=== PATIENT | male | born 1945 | race Caucasian/White ===

== ENCOUNTER → 2023-12-10 09:04 | Outpatient (REF) | payer MEDICARE, OTHER, SELFPAY | LOC: DHVS 09:04 | PROVIDERS: ATTENDING PHYSICIAN Surgery Vascular Surgery | DX: I73.9 Peripheral vascular disease, unspecified (principal) | CPT/HCPCS: 93922; 93925; 93978 ==

== ENCOUNTER → 2024-03-15 09:35 | Outpatient (REF) | payer MEDICARE, OTHER, SELFPAY ==
[2024-03-15 10:10] LABS: % Basophils 0.8 % (0-2); % Eosinophils 3.1 % (0-6); % Immature Granulocytes 0.3 % (0-0.5); % Lymphocytes 20.8 % (20.5-51.1); % Monocytes 10.3 % (1.7-9.3); % Neutrophils 64.7 % (42.2-75.2); Absolute Basophils 0.1 10^3/uL (0-0.2); Absolute Eosinophils 0.2 10^3/uL (0-0.7); Absolute Lymphocytes 1.3 10^3/uL (1.2-3.4); Absolute Monocytes 0.7 10^3/uL (0.1-0.6); Absolute Neutrophils 4.1 10^3/uL (1.4-6.5); Hematocrit 41.4 % (39.0-52.0); Hemoglobin 13.2 g/dL (13.0-18.0); Mean Corp Hgb Conc. 31.9 g/dL (33.0-37.0); Mean Corpuscular Hgb 27.9 pg (27.0-31.0); Mean Corpuscular Volume 87.5 fL (80.0-94.0); Mean Platelet Volume 10.7 fL (7.4-10.4); Nucleated Red Blood Cells % 0 % (-); Platelet Count 172 10^3/uL (130-400); Red Blood Cell Count 4.73 10^6/uL (4.70-6.10); Red Cell Dist. Width 16.3 % (11.5-14.5); White Blood Cell Count 6.4 10^3/uL (4.8-10.8)
[2024-03-15 11:18] LABS: Glycohemoglobin (HgbA1c) 6.3 % (4.0-5.6)
[2024-03-15 11:20] LABS: ALT (SGPT) 13 U/L (0-50); AST (SGOT) 23 U/L (17-59); Albumin 4.7 g/dl (3.5-5.0); Alkaline Phosphatase 105 U/L (38-126); Blood Urea Nitrogen 24 mg/dl (9-20); Calcium 10.6 mg/dl (8.4-10.2); Carbon Dioxide 25 mmol/L (22-30); Chloride 106 mmol/L (98-107); Glucose 106 mg/dl (70-99); HDL Cholesterol 53 mg/dl; LDL Cholesterol, Calculated 70 mg/dl; Potassium 4.3 mmol/L (3.5-5.1); Sodium 144 mmol/L (135-145); Total Bilirubin 0.7 mg/dl (0.2-1.3); Total Cholesterol 151 mg/dl (50-199); Total Protein 7.6 g/dl (6.3-8.2); Triglyceride 141 mg/dl (10-149); Very Low Density Lipoprotein 28 mg/dl (0-30); eGFR 38.05
[2024-03-15 11:50] LABS: TSH 1.61 uIU/ml (0.47-4.68)
== END ==
LOC: REG 09:35
PROVIDERS: ATTENDING PHYSICIAN Family Medicine
DX: I10 Essential (primary) hypertension (principal); E78.2 Mixed hyperlipidemia; E11.51 Type 2 diabetes mellitus with diabetic peripheral angiopathy without gangrene
CPT/HCPCS: 36415; 80053; 80061; 83036; 84443; 85025

== ENCOUNTER → 2024-07-01 13:08 | Outpatient (REF) | payer MEDICARE, OTHER, SELFPAY ==
[2024-07-01 14:53] LABS: % Basophils 0.7 % (0-2); % Eosinophils 2.7 % (0-6); % Immature Granulocytes 0.4 % (0-0.5); % Lymphocytes 21.4 % (20.5-51.1); % Monocytes 9.2 % (1.7-9.3); % Neutrophils 65.6 % (42.2-75.2); Absolute Basophils 0.1 10^3/uL (0-0.2); Absolute Eosinophils 0.2 10^3/uL (0-0.7); Absolute Lymphocytes 1.5 10^3/uL (1.2-3.4); Absolute Monocytes 0.7 10^3/uL (0.1-0.6); Absolute Neutrophils 4.6 10^3/uL (1.4-6.5); Hematocrit 40.2 % (39.0-52.0); Hemoglobin 12.6 g/dL (13.0-18.0); Mean Corp Hgb Conc. 31.3 g/dL (33.0-37.0); Mean Corpuscular Hgb 28.1 pg (27.0-31.0); Mean Corpuscular Volume 89.7 fL (80.0-94.0); Nucleated Red Blood Cells % 0 % (-); Platelet Count 178 10^3/uL (130-400); Red Blood Cell Count 4.48 10^6/uL (4.70-6.10); Red Cell Dist. Width 14.8 % (11.5-14.5); White Blood Cell Count 7.1 10^3/uL (4.8-10.8)
[2024-07-01 15:25] LABS: Albumin 4.5 g/dl (3.5-5.0); Blood Urea Nitrogen 23 mg/dl (9-20); Calcium 10.2 mg/dl (8.4-10.2); Carbon Dioxide 28 mmol/L (22-30); Chloride 102 mmol/L (98-107); Glucose 75 mg/dl (70-99); Phosphorus 3.1 mg/dl (2.5-4.5); Potassium 4.7 mmol/L (3.5-5.1); Sodium 139 mmol/L (135-145); Uric Acid 3.4 mg/dl (3.5-8.5); eGFR 47.06
[2024-07-02 09:17] LABS: Intact PTH 76.4 pg/ml (13.6-85.8)
== END ==
LOC: RAD 13:08
PROVIDERS: ATTENDING PHYSICIAN Specialist; FAMILY PHYSICIAN Family Medicine
DX: R79.89 Other specified abnormal findings of blood chemistry (principal)
CPT/HCPCS: 36415; 76770; 80069; 83970; 84155; 84165; 84550; 85025

== ENCOUNTER → 2024-07-04 13:40 | Outpatient (REF) | payer MEDICARE, OTHER, SELFPAY ==
[2024-07-04 15:20] LABS: Microalbumin, Random Urine 2.3 mg/dl (0.6-1.7); Microalbumin/creatinine Ratio 28.8 mg/g
== END ==
LOC: REG 13:40
PROVIDERS: ATTENDING PHYSICIAN Specialist
DX: R79.89 Other specified abnormal findings of blood chemistry (principal)
CPT/HCPCS: 82043; 82570; 83521; 84156; 86335

== ENCOUNTER → 2024-07-12 15:13 | Outpatient (REF) | payer MEDICARE, OTHER, SELFPAY | LOC: RAD 15:13 | PROVIDERS: ATTENDING PHYSICIAN Surgery Vascular Surgery; FAMILY PHYSICIAN Family Medicine | DX: I73.9 Peripheral vascular disease, unspecified (principal) | CPT/HCPCS: 93922; 93925 ==

== ENCOUNTER → 2024-11-09 14:28 | Outpatient (REF) | payer MEDICARE, OTHER, SELFPAY ==
[2024-11-09 15:57] LABS: ALT (SGPT) 11 U/L (0-50); AST (SGOT) 19 U/L (17-59); Albumin 4.5 g/dl (3.5-5.0); Alkaline Phosphatase 94 U/L (38-126); Blood Urea Nitrogen 19 mg/dl (9-20); Calcium 9.7 mg/dl (8.4-10.2); Carbon Dioxide 28 mmol/L (22-30); Chloride 103 mmol/L (98-107); Glucose 92 mg/dl (70-99); Potassium 4.4 mmol/L (3.5-5.1); Sodium 140 mmol/L (135-145); Total Bilirubin 0.8 mg/dl (0.2-1.3); eGFR 51.13
[2024-11-09 16:36] LABS: Microalbumin, Random Urine 2.8 mg/dl (0.6-1.7); Microalbumin/creatinine Ratio 36.6 mg/g
== END ==
LOC: REG 14:28
PROVIDERS: ATTENDING PHYSICIAN Specialist; FAMILY PHYSICIAN Family Medicine
DX: R79.89 Other specified abnormal findings of blood chemistry (principal)
CPT/HCPCS: 36415; 80053; 82043; 82570

== ENCOUNTER 2024-12-27 05:01 | Emergency (ER) | payer MEDICARE, OTHER, SELFPAY ==
[2024-12-27 05:04] VITALS: BP 126/71
[2024-12-27 05:10] VITALS: BMI 28.1
[2024-12-27 05:27] LABS: % Basophils 0.6 % (0-2); % Eosinophils 3.3 % (0-6); % Immature Granulocytes 0.5 % (0-0.5); % Lymphocytes 20.8 % (20.5-51.1); % Monocytes 10.1 % (1.7-9.3); % Neutrophils 64.7 % (42.2-75.2); Absolute Eosinophils 0.2 10^3/uL (0-0.7); Absolute Lymphocytes 1.4 10^3/uL (1.2-3.4); Absolute Monocytes 0.7 10^3/uL (0.1-0.6); Absolute Neutrophils 4.3 10^3/uL (1.4-6.5); Hematocrit 43.7 % (39.0-52.0); Hemoglobin 13.4 g/dL (13.0-18.0); Mean Corp Hgb Conc. 30.7 g/dL (33.0-37.0); Mean Corpuscular Hgb 25.9 pg (27.0-31.0); Mean Corpuscular Volume 84.4 fL (80.0-94.0); Mean Platelet Volume 10.7 fL (7.4-10.4); Nucleated Red Blood Cells % 0 % (-); Platelet Count 210 10^3/uL (130-400); Red Blood Cell Count 5.18 10^6/uL (4.70-6.10); Red Cell Dist. Width 17.4 % (11.5-14.5); White Blood Cell Count 6.6 10^3/uL (4.8-10.8)
[2024-12-27 05:55] LABS: ALT (SGPT) 12 U/L (0-50); AST (SGOT) 21 U/L (17-59); Albumin 4.3 g/dl (3.5-5.0); Alkaline Phosphatase 116 U/L (38-126); Blood Urea Nitrogen 23 mg/dl (9-20); Calcium 10.2 mg/dl (8.4-10.2); Carbon Dioxide 31 mmol/L (22-30); Chloride 104 mmol/L (98-107); Estimated Creatinine Clearance 29 ml/min; Glucose 141 mg/dl (70-99); Potassium 3.3 mmol/L (3.5-5.1); Sodium 146 mmol/L (135-145); Total Bilirubin 0.7 mg/dl (0.2-1.3); Total Protein 7.3 g/dl (6.3-8.2); eGFR 33.32
[2024-12-27 06:00] VITALS: BP 136/92
--- NOTE | 2024-12-27 06:05 | ED.GENMED ---
Addendum entered and electronically signed by Pete Pennington DO 12/27/24 08:33:
Addendum, patient became verbally abusive to staff, I tried to de-escalate the situation unsuccessfully and he was adamant that he wanted to go home given verbal AMA instructions
Original Note:
History of Present Illness
<Luciana Weinstein MD, Resident - Last Filed: 12/27/24 07:46>
General
Chief Complaint: Heart Rate Problem
Time Seen by Provider: 12/27/24 05:56
History of Present Illness
History of Present Illness:
This is a 77-year-old male with PMH of Paroxysmal Afib, HTN, HLD, T2DM and PAD who presents to the ED after a fall episode at home. Patient reports falling off a chair while trying to go to the restroom at night. He denies hitting his head on the
floor. He denied any dizziness episode, but admits weakness in bilateral extremities while trying to stand up. He denied loss of consciousness. On baseline, patient uses a walker and a cane to ambulate. Per his , he has had multiple fall
episodes in the past 2 months, most recent episode was 3 weeks ago prompting him to get evaluated at [facility]. At that time, he hit his head on the floor, and was noted to be in Afib. Per , workup done at that time were
negative, and he spontaneously converted to NSR prior to discharge.
Today, patient denies any pain and numbness in bilateral lower extremities. He reports weakness which is chronic for him due to his history of PAD. His contacted EMS after the fall episode and he was noted to be in rapid Afib. He denies chest
pain, shortness of breath, palpitation, dizziness. He has had no fevers or viral episodes. He currently takes Eliquis and has not missed any dosage.
Past History
<Luciana Weinstein MD, Resident - Last Filed: 12/27/24 07:46>
Past History
ED Past Medical History: Arrthythmia (Atrial flutter, paroxysmal atrial fibrillation), HTN, Hypercholesterolemia, IDDM, [place] and Other (CAD, ischemic cardiomyopathy, paroxysmal atrial fibrillation, NSVT, hypertension, hyperlipidemia, T2DM, PAD)
ED Past Surgical History: Cardiac (stentx1)
Social History
Tobacco: Former smoker
Alcohol: None
Drug: None
Personal:
Living: with family
Employment: Retired
Review of Systems
<Luciana Weinstein MD, Resident - Last Filed: 12/27/24 07:46>
Review of Systems
All Other Systems: ROS reviewed and negative except as documented in HPI and ROS
Constitutional: Denies fever, fatigue or chills
Respiratory: Reports no symptoms
Cardiac: Reports no symptoms
ABD/GI: Reports no symptoms
: Reports no symptoms
Musculoskeletal: Reports no symptoms
Phy Exam
<Luciana Weinstein MD, Resident - Last Filed: 12/27/24 07:46>
General Physical Exam
General Presentation: well appearing and no apparent distress
General Skin: warm and dry
General Habitus: elderly
General Mental: alert
Cardiovascular Exam
Cardiovascular Exam: irregularly irregular and tachycardia
Pulmonary Exam
Pulmonary Exam: lungs clear, no respiratory distress and no crackles
Gastrointestinal Exam
Gastrointestinal Exam: normal bowel sounds, non tender, soft and non distended
Neurological Exam
Neurological Exam: alert and oriented x3
Musculoskeletal Exam
Musculoskeletal Exam: full ROM and no edema
Psychiatric Exam
Psychiatric Exam: normal mood/affect
Course
<Luciana Weinstein MD, Resident - Last Filed: 12/27/24 07:46>
Orders/Labs/Results
Orders:
Orders
12/27/24 05:03
EKG [Electrocardiogram (*1)] Urgent
Reason for Study: Atrial Fibrillation
EKG- Treatment ONCE
12/27/24 05:12
CMP [Comprehensive Metabolic Panel] Urgent
Complete Blood Count/With Diff Urgent
Magnesium Urgent
Comment: ADD ON
NT-proBNP Urgent
Comment: ADD ON-SERUM
12/27/24 05:57
Add On- LAB Urgent
Tests Added?: magnesium, pBNP
CR Chest - 2 Views Urgent
Comment:
Reason For Exam: sob arf af
12/27/24 06:31
CT Cervical Spine W/o Iv Contr Urgent
Comment:
Reason For Exam: fall
CT Head W/o Iv Contrast Urgent
Comment:
Reason For Exam: fall
Diltiazem HCl [Cardizem] 10 mg IV NOW STA
12/27/24 06:45
Diltiazem 125 mg/125 ml Nss [Cardizem] 125 mg in 125 ml IV PER PROTOCOL
Initial dose in mg/hr, then titrate:: 5
Titrate to keep:: Heart rate 80-100 bpm
Titrate by mg/hr:: 5 mg/hr
Frequency of titrations (minutes):: 15
Maximum dose in mg/hr:: 15
12/27/24 07:04
Potassium Chloride [KCl] 20 meq 0.9% Sodium Chloride 150 ml [Nss] 150 ml IV NOW
12/27/24 07:08
Urinalysis Stat
Abnormal Lab Results
12/27/24
05:12
MCH 25.9 L pg
(27.0-31.0)
MCHC 30.7 L g/dL
(33.0-37.0)
RDW 17.4 H %
(11.5-14.5)
MPV 10.7 H fL
(7.4-10.4)
Absolute Monos (auto) 0.7 H 10^3/uL
(0.1-0.6)
Monocytes % 10.1 H %
(1.7-9.3)
Sodium 146 H mmol/L
(135-145)
Potassium 3.3 L mmol/L
(3.5-5.1)
Carbon Dioxide 31 H mmol/L
(22-30)
BUN 23 H mg/dl
(9-20)
Creatinine 2.0 H mg/dL
(0.7-1.3)
Glucose 141 H mg/dl
(70-99)
Magnesium 2.4 H mg/dl
(1.6-2.3)
12/27/24 05:12
12/27/24 05:12
Vital Signs
Initial and Last Documented VS:
Initial Vital Signs
Temp Pulse Resp BP Pulse Ox
97.7 F 123 20 126/71 98
12/27/24 05:04 12/27/24 05:04 12/27/24 05:04 12/27/24 05:04 12/27/24 05:04
Last Documented Vital Signs
Temp Pulse Resp BP Pulse Ox
97.7 F 138 16 136/92 94
12/27/24 05:04 12/27/24 06:41 12/27/24 06:15 12/27/24 06:41 12/27/24 06:15
<Pete Pennington, DO - Last Filed: 12/27/24 06:47>
Orders/Labs/Results
Orders:
Orders
12/27/24 05:03
EKG [Electrocardiogram (*1)] Urgent
Reason for Study: Atrial Fibrillation
EKG- Treatment ONCE
12/27/24 05:12
CMP [Comprehensive Metabolic Panel] Urgent
Complete Blood Count/With Diff Urgent
Magnesium Urgent
Comment: ADD ON
NT-proBNP Urgent
Comment: ADD ON-SERUM
12/27/24 05:57
Add On- LAB Urgent
Tests Added?: magnesium, pBNP
CR Chest - 2 Views Urgent
Comment:
Reason For Exam: sob arf af
12/27/24 06:31
CT Cervical Spine W/o Iv Contr Urgent
Comment:
Reason For Exam: fall
CT Head W/o Iv Contrast Urgent
Comment:
Reason For Exam: fall
Diltiazem HCl [Cardizem] 10 mg IV NOW STA
12/27/24 06:45
Diltiazem 125 mg/125 ml Nss [Cardizem] 125 mg in 125 ml IV PER PROTOCOL
Initial dose in mg/hr, then titrate:: 5
Titrate to keep:: Heart rate 80-100 bpm
Titrate by mg/hr:: 5 mg/hr
Frequency of titrations (minutes):: 15
Maximum dose in mg/hr:: 15
12/27/24 07:04
Potassium Chloride [KCl] 20 meq 0.9% Sodium Chloride 150 ml [Nss] 150 ml IV NOW
12/27/24 07:08
Urinalysis Stat
Abnormal Lab Results
12/27/24
05:12
MCH 25.9 L pg
(27.0-31.0)
MCHC 30.7 L g/dL
(33.0-37.0)
RDW 17.4 H %
(11.5-14.5)
MPV 10.7 H fL
(7.4-10.4)
Absolute Monos (auto) 0.7 H 10^3/uL
(0.1-0.6)
Monocytes % 10.1 H %
(1.7-9.3)
Sodium 146 H mmol/L
(135-145)
Potassium 3.3 L mmol/L
(3.5-5.1)
Carbon Dioxide 31 H mmol/L
(22-30)
BUN 23 H mg/dl
(9-20)
Creatinine 2.0 H mg/dL
(0.7-1.3)
Glucose 141 H mg/dl
(70-99)
Magnesium 2.4 H mg/dl
(1.6-2.3)
12/27/24 05:12
12/27/24 05:12
Vital Signs
Initial and Last Documented VS:
Initial Vital Signs
Temp Pulse Resp BP Pulse Ox
97.7 F 123 20 126/71 98
12/27/24 05:04 12/27/24 05:04 12/27/24 05:04 12/27/24 05:04 12/27/24 05:04
Last Documented Vital Signs
Temp Pulse Resp BP Pulse Ox
97.7 F 138 16 136/92 94
12/27/24 05:04 12/27/24 06:41 12/27/24 06:15 12/27/24 06:41 12/27/24 06:15
<Luciana Weinstein MD, Resident - Last Filed: 12/27/24 07:46>
MDM/Problems Addressed
MDM/Problems Addressed:
This is a 79-year-old with past medical history of paroxysmal atrial fibrillation, hypertension, hyperlipidemia who presents to the ED after recent fall. Per he has had multiple fall episodes over the past 2 months and recently evaluated at
[facility]. He was noted to be in A-fib by EMS. At bedside, he denies palpitations, shortness of breath, chest pain. He denies dizziness, loss of consciousness. Patient is in no distress, irregular rate, irregular rhythm,
extremities no peripheral edema. Will start on Cardizem drip for rate control.
Update: Patient left the ED against medical advice after being informed of the risks, including potential complications related to anticoagulation and recent falls. Patient refused to sign the AMA form and stated they understood the risks. Patient
was verbally disrespectful toward the nursing staff during the discharge process.
<Luciana Weinstein MD, Resident - Last Filed: 12/27/24 07:46>
*Critical Care Note
Total Time (30-74mins, 75-104mins- exclusive of procedures): Not Applicable
ED Attending Note
<Luciana Weinstein MD, Resident - Last Filed: 12/27/24 07:46>
-
Portions of this chart may have been created with voice recognition software.� Occasional wrong word or��sound alike� substitutions may have occurred due to the inherent limitations of voice recognition software.
<Pete Pennington, DO - Last Filed: 12/27/24 06:47>
ED Attending Note
Patient seen and examined by attending physician: Yes
I performed a history and physical exam of patient and discussed management with resident, I reviewed resident's note and agree with documented findings and plan of care.: Yes
ED Attending Note:
Seen with resident, examined independently. Assessment and plan 79-year-old male PAF on Eliquis, fall few weeks ago apparently seen at [facility] had a CAT scan converted to sinus on his own fell again this morning, here he looks somewhat disheveled
but cooperative no overt signs of trauma he is in rapid A-fib appears deconditioned plan to be labs for rate control CT head cervical spine chest x-ray UA, low threshold to admit age recurrent falls rapid A-fib
Discharge Plan
Departure
Prescriptions:
No Action
trazodone 50 mg Tablet
50 mg PO QPM
rosuvastatin [Crestor] 20 mg Tablet
20 mg PO QPM
pregabalin [Lyrica] 50 mg Capsule
50 mg PO BID
Eliquis 5 mg Tablet
5 mg PO BID
empagliflozin 25 mg Tablet
12.5 mg PO HS
paroxetine HCl 40 mg Tablet
40 mg PO QPM
lisinopril 20 mg Tablet
20 mg PO DAILY
clopidogrel 75 mg Tablet
75 mg PO DAILY Qty: 90 0RF
carvedilol 6.25 mg Tablet
6.25 mg PO BID Qty: 120 0RF
Referrals:
Shaggy Dewitt MD [Family Provider] -
Interventions
Interventions:
*Risk Screen - Suicide Last Done: 12/27/24 05:04
*General Assessment Last Done: 12/27/24 05:04
*Neglect/Abuse Screening Last Done: 12/27/24 05:04
*ED- Fall Risk Assessment Last Done: 12/27/24 05:04
*ED COVID-19 Vaccine History Last Done: 12/27/24 05:04
ED- Cardiac Assessment Last Done: 12/27/24 05:19
ED- Pulmonary Assessment Last Done: 12/27/24 05:21
Discharge Date and Time
Print Language: SINGAPORE[place]
[2024-12-27 06:10] LABS: Magnesium 2.4 mg/dl (1.6-2.3)
[2024-12-27] MEDS: CARDIZEM 10 MG IV (06:41)
[2024-12-27 06:47] VITALS: BP 110/83
[2024-12-27] MEDS: CARDIZEM 125 IV (06:47)
[2024-12-27 07:03] VITALS: BP 135/74
[2024-12-27 07:20] VITALS: BP 162/101
--- NOTE | 2024-12-27 07:40 | EDRN ---
I was texting the attending to see if pt could eat and to update him that I could not obtain a UA at this time. The pt was calling out from his room, telling me to take this stuff off, he's going home. I explained that I was trying to get him some
breakfast and he replied; ' you can't bribe me '. I tried explaining that I was talking to the doctor at this moment but he was adamant about leaving, complaining about waiting too long : ' half an hour '. The resident came in and tried to talk to
the pt. At this point the pt had removed his monitor, his BP Cuff. and was at the foot of the bed. HE starting to complain about eveything about me; from being rude, to my hands were to cold to touch anybody', etc. The resident was concerned about
his falling, I found a walker for him to use ; ' it's too small'. and he did walk up and down the cueto. I removed his INT and placed a dressing. I tried to help him take his stickers off; ' don't touch me, you don't show me respect I deserve, I'll
report you to the state board, I don't want to see you '. 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 I was offering a wheelchair, he yelled me not to talk to anyone while I was in the cueto by his door. The chemical radiation technician offered a w/ch; ' what
do you think , I'm an idiot?' he asked him. I did call his who is coming to pick him up . The resident had me leave as the pt continued to verbally harass me.
[2024-12-27 07:49] LABS: NT-proBNP 279 pg/ml
== END 2024-12-27 07:50 | disposition left against medical advice (07) ==
LOC: EMR 05:01
PROVIDERS: Student in an Organized Health Care Education/Training Program; EMERGENCY PHYSICIAN Emergency Medicine; FAMILY PHYSICIAN Family Medicine
DX: R29.6 Repeated falls (principal); W07.XXXA Fall from chair, initial encounter; I48.0 Paroxysmal atrial fibrillation; Z53.29 Procedure and treatment not carried out because of patient's decision for other reasons; Z79.01 Long term (current) use of anticoagulants; I10 Essential (primary) hypertension; E78.00 Pure hypercholesterolemia, unspecified; Z87.891 Personal history of nicotine dependence
CPT/HCPCS: 99285; 96374; 70450; 71046; 72125; 80053; 83735; 83880; 85025; 93005

== ENCOUNTER 2025-01-08 03:05 | Observation (INO) | payer MEDICARE, OTHER, SELFPAY ==
[2025-01-08] VITALS (9 sets, daily range): BP systolic 114–196; BP diastolic 68–95; PULSE 60–71; O2SAT 100; BMI 27.4; BMI 33.9
--- NOTE | 2025-01-08 00:38 | ED.GENMED ---
History of Present Illness
General
Chief Complaint: Fall
Source: patient, records and spouse
Exam Limitations: none
Time Seen by Provider: 01/08/25 00:18
Nursing documentation reviewed up to this point in time: agreed with
History of Present Illness
History of Present Illness:
79-year-old male with a past medical history of hypertension, hyperlipidemia, diabetes, atrial fibrillation on Eliquis, CAD who presents to the emergency room with his for evaluation of generalized weakness and multiple falls. Patient
currently lives at home with his . According to his over the past 5 weeks he has had progressive generalized weakness and ambulatory dysfunction with multiple falls. Patient describes that when he walks his legs 'give out' and he falls
down onto his bottom. This has happened countless times over the past month; over the past week or 2 has happened multiple times daily. Fortunately no serious injuries sustained� says that typically she will help lower him to the ground but
does not have the strength to keep him upright. He has been ambulating with a walker but still having issues. Presented with similar 2 weeks ago and was recommended for admission�at that time had rapid A-fib and it was felt that he might benefit
from rehab for deconditioning; patient declined and left the hospital AMA. Symptoms have continued and functional status worsening�finally agreed to come back to the emergency room today. He denies any focal weakness. Denies any numbness. Denies
any change in his speech or vision. Denies any headache. Denies any neck or back pain. Denies any chest or abdominal pain. Denies any shortness of breath. He has had a mild nagging cough. Denies any nausea, vomiting, diarrhea�in fact reports
mild constipation. Denies other complaints.
Past History
Past History
ED Past Medical History: Arrthythmia (Atrial flutter, paroxysmal atrial fibrillation), HTN, Hypercholesterolemia, IDDM, [place] and Other (CAD, ischemic cardiomyopathy, paroxysmal atrial fibrillation, NSVT, hypertension, hyperlipidemia, T2DM, PAD)
ED Past Surgical History: Cardiac (stentx1)
Social History
Tobacco: Former smoker
Alcohol: None
Drug: None
Personal:
Living: with family
Employment: Retired
Review of Systems
Review of Systems
All Other Systems: ROS reviewed and negative except as documented in HPI and ROS
Constitutional: Reports fatigue; Denies fever or chills
EENT: Denies runny nose
Respiratory: Reports cough; Denies trouble breathing
Cardiac: Denies chest pain or palpitations
ABD/GI: Reports constipated; Denies abdominal pain, nausea, vomiting or diarrhea
: Denies dysuria, frequency or flank pain
Musculoskeletal: Denies joint pain, neck pain or back pain
Neurological: Reports weakness; Denies dizzy, headache or numbness
Phy Exam
Physical Exam
Physical Exam:
General: Awake, alert, oriented x3; no acute distress
Head: Normocephalic, atraumatic
Eyes: Conjunctiva normal, EOMI, pupils equal round reactive to light bilateral
Throat: Airway intact, handling secretions
Neck: Trachea midline, supple without meningismus
Lungs: Clear to auscultation bilaterally, no wheezing, rales, rhonchi
Heart: Regular rate and rhythm, no murmurs, gallops, or rubs appreciated; no chest wall tenderness
Abd: Soft, non distended, nontender
Back: No signs of trauma to the back or flank and no tenderness in the thoracic or lumbar spine
Neuro: Cranial nerves grossly intact, speech fluid, motor and sensory intact and symmetric in all extremities
Extremities: Skin tear to the left elbow; no other signs of acute trauma to the extremities and moving all extremities including left elbow through good range of motion without pain
Scores
Heart Failure Risk
Heart Failure Risk Score: Not Applicable
Heart Score for Chest Pain Patients
STEMI patient?: Not applicable
Withdrawal Assessment of Alcohol
Withdrawal Assessment Completed?: Not applicable
Course
Orders/Labs/Results
Orders:
Orders
01/08/25 00:32
Electrocardiogram (*1) Urgent
Reason for Study: Fatigue / Weakness
CT Head W/o Iv Contrast Urgent
Comment:
Reason For Exam: weakness (b/l legs), multiple falls
EKG- Treatment ONCE
Urinalysis Reflex To Culture Urgent
Date Specimen was Collected: 01/08/25
Time Specimen was Collected: 01:01
01/08/25 00:33
CR Chest Portable - 1 View Urgent
Comment:
Reason For Exam: weakness, eval for pna
Reason Study Needs to be Portable: Unable to Transport
01/08/25 00:34
Case Management Consult ONCE
Case Management Consult: Half-Way Placement
01/08/25 00:43
Alcohol Urgent
COVID-19 Antigen Urgent
Source: Nasal Swab
Complete Blood Count/With Diff Urgent
Comprehensive Metabolic Panel Urgent
Lipase Urgent
Magnesium Urgent
NT-proBNP Urgent
TSH Reflex To Free T4 Urgent
Troponin I Urgent
Influenza A+B Rapid Molecular Urgent
SAMIR Source: Nasal Swab
Specimen Description:
01/08/25 00:51
Drug Screen, Urine [Urine Drug Abuse Screen] Urgent
Date Specimen was Collected: 01/08/25
Time Specimen was Collected: 01:01
01/08/25 01:22
Add On- LAB Urgent
Tests Added?: ETOH
01/08/25 01:25
Potassium Chloride [KCl] 40 meq PO NOW STA
01/08/25 01:30
0.9% Sodium Chloride 1000 ml [Nss] 1,000 ml IV 125 mls/hr
Abnormal Lab Results
01/08/25
00:43
RBC 4.32 L 10^6/uL
(4.70-6.10)
Hgb 11.5 L g/dL
(13.0-18.0)
Hct 37.0 L %
(39.0-52.0)
MCH 26.6 L pg
(27.0-31.0)
MCHC 31.1 L g/dL
(33.0-37.0)
RDW 17.7 H %
(11.5-14.5)
MPV 10.7 H fL
(7.4-10.4)
Absolute Monos (auto) 0.7 H 10^3/uL
(0.1-0.6)
Lymphocytes % 18.2 L %
(20.5-51.1)
Monocytes % 9.9 H %
(1.7-9.3)
Potassium 3.1 L mmol/L
(3.5-5.1)
Glucose 134 H mg/dl
(70-99)
Magnesium 2.4 H mg/dl
(1.6-2.3)
AST 16 L U/L
(17-59)
Total Protein 6.2 L g/dl
(6.3-8.2)
Lipase 884 H U/L
(23-300)
01/08/25 00:43
01/08/25 00:43
Vital Signs
Initial and Last Documented VS:
Initial Vital Signs
BP
114/92
01/08/25 00:05
Last Documented Vital Signs
Temp Pulse Resp BP Pulse Ox
36.6 C 63 10 114/92 97
01/08/25 00:06 01/08/25 00:06 01/08/25 00:06 01/08/25 00:06 01/08/25 00:06
MDM/Problems Addressed
Differential Diagnosis Includes:
Differential diagnosis for weakness and falls is wide includes but not limited to: Strokes, NPH, or other neurologic issue; anemia; electrolyte derangement; A-fib; CHF; infection such as UTI or pneumonia
MDM/Problems Addressed:
79-year-old male presents with generalized weakness and frequent falls progressive x 5 weeks. Fortunately no serious injuries but he is on Eliquis. Vitals and exam as above. He was seen for similar 2 weeks ago and left AMA from the ER; today he
is more willing to get help while his is here in the emergency room at bedside with him. Plan to check an EKG. Will send labs including a CBC and a CMP, thyroid studies, troponin, proBNP. Will check swabs for COVID and flu. Check urinalysis
and chest x-ray. Will check CT head with multiple falls while anticoagulated. Will reassess after the above.
Initial labs reviewed: CBC shows marginal anemia, CMP shows hypokalemia which we will replete p.o. Magnesium acceptable. AST marginally elevated. His lipase was slightly elevated at 884. Added alcohol level--no alcohol use reported. Awaiting
rest of workup.
Alcohol level negative. CT head negative for any acute abnormality. Will admit for continued monitoring, trend labs, case management consultation. Discussed with hospitalist.
Chronic conditions affecting care:
A-fib on Eliquis complicates falls
*Radiology
Radiology exam reviewed: radiology read reviewed
*Pulse Oximetry
Patient hypoxic: no
*EKG
Interpreted by ED Provider?: Yes
Heart Rate: 58
Rate: bradycardiac
Rhythm: sinus
Onley: left axis deviation
Interval: first degree heart block
QRS Pattern: normal QRS
Ischemia: other (Septal infarct age undetermined)
*Critical Care Note
Total Time (30-74mins, 75-104mins- exclusive of procedures): Not Applicable
Data Reviewed
Review of Other/Old Records Reveals: Labs, Records and Discharge Summary
Source: patient, records and spouse
Patient Management
Discussion with other providers: Hospitalist (Discussed with hospitalist)
Escalation/DeEscalation of care consider admission/obs:
Admission indicated
ED Attending Note
-
Portions of this chart may have been created with voice recognition software.� Occasional wrong word or��sound alike� substitutions may have occurred due to the inherent limitations of voice recognition software.
Discharge Plan
Departure
Prescriptions:
No Action
trazodone 50 mg Tablet
25 mg PO QPM
rosuvastatin [Crestor] 20 mg Tablet
20 mg PO QPM
pregabalin [Lyrica] 50 mg Capsule
50 mg PO BID
Eliquis 5 mg Tablet
2.5 mg PO BID
empagliflozin 25 mg Tablet
12.5 mg PO HS
paroxetine HCl 40 mg Tablet
40 mg PO QPM
donepezil [Aricept] 5 mg Tablet
10 mg PO DAILY
aspirin 81 mg Tablet
81 mg PO DAILY
bupropion HCl [Wellbutrin] 100 mg Tablet
300 mg PO DAILY
Vitamin B-12
2,000 mg PO DAILY
carvedilol 6.25 mg tablet
3.125 mg PO BID
Referrals:
Shaggy Dewitt MD [Family Provider] -
Interventions
Interventions:
*Risk Screen - Suicide Last Done: 01/08/25 00:06
*General Assessment Last Done: 01/08/25 00:06
*Neglect/Abuse Screening Last Done: 01/08/25 00:06
*ED- Fall Risk Assessment Last Done: 01/08/25 00:06
*ED COVID-19 Vaccine History Last Done: 01/08/25 00:06
ED-Musculoskeletal Assessment Last Done: 01/08/25 01:04
ED- Neurological Assessment Last Done: 01/08/25 01:04
ED-Skin Assessment Last Done: 01/08/25 01:04
Discharge Date and Time
Print Language: [id number]
[2025-01-08 00:56] LABS: % Basophils 0.8 % (0-2); % Eosinophils 3.3 % (0-6); % Immature Granulocytes 0.4 % (0-0.5); % Lymphocytes 18.2 % (20.5-51.1); % Monocytes 9.9 % (1.7-9.3); % Neutrophils 67.4 % (42.2-75.2); Absolute Basophils 0.1 10^3/uL (0-0.2); Absolute Eosinophils 0.2 10^3/uL (0-0.7); Absolute Lymphocytes 1.3 10^3/uL (1.2-3.4); Absolute Monocytes 0.7 10^3/uL (0.1-0.6); Absolute Neutrophils 4.8 10^3/uL (1.4-6.5); Hemoglobin 11.5 g/dL (13.0-18.0); Mean Corp Hgb Conc. 31.1 g/dL (33.0-37.0); Mean Corpuscular Hgb 26.6 pg (27.0-31.0); Mean Corpuscular Volume 85.6 fL (80.0-94.0); Mean Platelet Volume 10.7 fL (7.4-10.4); Nucleated Red Blood Cells % 0 % (-); Platelet Count 141 10^3/uL (130-400); Red Blood Cell Count 4.32 10^6/uL (4.70-6.10); Red Cell Dist. Width 17.7 % (11.5-14.5); White Blood Cell Count 7.2 10^3/uL (4.8-10.8)
[2025-01-08 01:12] LABS: ALT (SGPT) 11 U/L (0-50); AST (SGOT) 16 U/L (17-59); Albumin 3.7 g/dl (3.5-5.0); Alkaline Phosphatase 104 U/L (38-126); Blood Urea Nitrogen 19 mg/dl (9-20); Calcium 9.7 mg/dl (8.4-10.2); Carbon Dioxide 27 mmol/L (22-30); Chloride 106 mmol/L (98-107); Estimated Creatinine Clearance 46 ml/min; Glucose 134 mg/dl (70-99); Lipase 884 U/L (23-300); Magnesium 2.4 mg/dl (1.6-2.3); Potassium 3.1 mmol/L (3.5-5.1); Sodium 141 mmol/L (135-145); Total Bilirubin 0.7 mg/dl (0.2-1.3); Total Protein 6.2 g/dl (6.3-8.2); eGFR 55.88
[2025-01-08 01:23] LABS: COVID-19 Antigen Negative (Negative)
[2025-01-08 01:25] LABS: NT-proBNP 279 pg/ml; Troponin I 0.019 ng/ml
[2025-01-08] MEDS: KCL 40 MEQ PO (01:50)
[2025-01-08] MEDS: NSS 1000 IV (01:50)
[2025-01-08 01:52] LABS: Alcohol None Detected
--- NOTE | 2025-01-08 02:26 | HPS.HSE ---
Family Physician
-
Family Physician: Shaggy Dewitt
Chief Complaint
-
Fall
History of Present Illness
Patient is a 79y M with PMH significant for A-Fib, ASCVD and mild dementia who presents to ED complaining of frequent falls. Patient states that he has been falling 'a lot' for the past several months. He estimates about 3-4 falls per week. He
denies any prodrome of dizziness, lightheadedness, chest pain or dyspnea. He states that he feels that his legs 'get weak' on him. He has a walker at home and states that he does use this regularly.
He denies any significant injuries related to his falls. He was evaluated here on 12/27 and signed out from the ED AMA on that occasion.
He had a fall today and again returned to the ED.
He has no complaints of pain at present. No fevers / chills, recent illness, cough, etc.
Medical History
Past Medical History
Past Medical History: Reports Other
Additional Past Medical History:
ASCVD (CAD / PAD / CVA)
Ischemic Cardiomyopathy
Paroxysmal Atrial Fibrillation
Hypertension
DM-II with Neuropathy
CKD III
BPH
Dementia / Depression
Past Surgical History: Reports Other
Additional Past Surgical History:
PTCA with Stent
Spinal Fusion
Fem-Fem Bypass
Social History
Tobacco: Former Smoker (Quit smoking in 1983.)
Alcohol: None
Family History
Family History: Not pertinent
Allergies / Home Medications
Allergies reflects when Allergies were last updated in [employer].
Home Medications with original date entered in [employer]
Allergy/Medication List:
Allergies
Allergy/AdvReac Type Severity Reaction Status Date / Time
No Known Allergies Allergy Verified 01/08/25 00:10
Home Medications
apixaban 5 mg tablet (Eliquis) 2.5 mg PO BID 07/31/22
empagliflozin 25 mg tablet 12.5 mg PO HS 07/31/22
pregabalin 50 mg capsule (Lyrica) 50 mg PO BID 07/31/22
rosuvastatin 20 mg tablet (Crestor) 20 mg PO QPM 07/31/22
trazodone 50 mg tablet 25 mg PO QPM 07/31/22
paroxetine HCl 40 mg tablet 40 mg PO QPM 08/01/22
Vitamin B-12 2,000 mg PO DAILY 01/08/25
aspirin 81 mg tablet 81 mg PO DAILY 01/08/25
bupropion HCl 100 mg tablet 300 mg PO DAILY 01/08/25
carvedilol 6.25 mg tablet 3.125 mg PO BID 01/08/25
donepezil 5 mg tablet (Aricept) 10 mg PO DAILY 01/08/25
Review of Systems
-
History Source: Patient
A 12 point ROS was completed and negative except as noted: Yes
Constitutional: Reports Fatigue; Denies Fever or Chills
Respiratory: Denies Cough or Trouble Breathing
Cardiac: Denies Chest Pain, Palpitations or Syncope
Abdomen/GI: Denies Abdominal Pain, Nausea, Vomiting, Diarrhea, Bloody Stools or Black Stools
: Denies Dysuria, Frequency or Flank Pain
Musculoskeletal: Denies Joint Pain or Edema
Neurological: Reports Weakness; Denies Dizzy or Headache
Psych: Denies Depression or Anxiety
Physical Exam
Vital Signs
Vital Signs
Temp Pulse Resp BP Pulse Ox
97.9 F 54 13 196/95 97
01/08/25 00:06 01/08/25 02:15 01/08/25 02:15 01/08/25 02:01 01/08/25 02:15
Physical Exam
General: Other (79y M in no acute distress.)
HEENT: Moist mucous membranes and PERRLA
Respiratory: Clear; No Wheezes, Rales or Rhonchi
Cardiac: S1/S2 and Regular Rhythm; No Murmur
GI: Soft, Non Tender, Non Distended and Normal Bowel Sounds
Musculoskeletal: No Clubbing, No Cyanosis and Other (Trace edema b/l LEs.)
Neuro: Awake, Alert and Nonfocal/grossly intact
Laboratory Results
-
01/08/25 00:43
01/08/25 00:43
Laboratory Results
Total Bilirubin 0.7 mg/dl (0.2-1.3) 01/08/25:
AST 16 U/L (17-59) L 01/08/25:43
ALT 11 U/L (0-50) 01/08/25:
Alkaline Phosphatase 104 U/L (38-126) 01/08/25:
Troponin I 0.019 ng/ml 01/08/25:43
Lipase 884 U/L (23-300) H 01/08/25 00:43
Impression/Plan
-
A/P: Patient is a 79y M with PMH significant for ASCVD, hypertension and paroxysmal A-Fib who presents to ED for evaluation of frequent falls.
Ambulatory Dysfunction
Frequent Falls
- Observe overnight for further evaluation and treatment.
- PT / OT / CM evaluations in the AM.
ASCVD
- Significant vascular history including CAD, PAD, CVA.
- Continue current med regimen including ASA, statin, Eliquis, etc.
- No current / recent symptoms of chest pain, etc.
- Followed by Vascular s/p Fem-fem bypass and non-invasive studies have reportedly been stable.
- Repeat vascular US. ? PAD contributing to ambulatory issues / weakness.
Paroxysmal Atrial Fibrillation
- Stable. Continue carvedilol.
- Continue Eliquis for stroke risk reduction.
Normocytic Anemia
- Hgb slightly decreased from recent baseline - though it has been similarly decreased in the past.
- No gross blood loss noted per patient.
- Check iron studies, heme test stool, etc.
- Follow for changes.
DM-II with Peripheral Neuropathy
- Stable. Continue Jardiance.
- Continue Lyrica for neuropathy symptoms.
- Neuropathy also likely contributing to gait / balance issues.
- Follow glucose and cover with SSI as needed.
- Update A1C.
CKD III
- Stable. Renal function at / better than prior baseline.
- Follow for any changes.
Mild Hypokalemia
- Oral replacement given in the ED.
- Mg level is adequate.
Depression
Senile Dementia
- Stable. Not currently agitated / anxious.
- Continue current med regimen including Aricept and trazodone.
- Follow for acute delirium during hospital stay.
DVT Prophylaxis: On Eliquis
Code Status: Full
--- NOTE | 2025-01-08 03:27 | EDRN ---
Patient used urinal to urinate, spilled some, patient cleaned up and urine specimen sent.
[2025-01-08 03:34] LABS: Urine Albumin 1+ (Neg - Trace); Urine Bilirubin Negative (Negative); Urine Character Clear (Clear); Urine Color Yellow; Urine Glucose 4+ (Negative); Urine Ketone Negative (Negative); Urine Leukocyte Negative (Negative); Urine Nitrite Negative (Negative); Urine Occult Blood 1+ (Negative); Urine Specific Gravity 1.015 (<1.030); Urine Urobilinogen Negative (Neg - 1+)
[2025-01-08 03:45] LABS: Amphetamines Negative (Negative); Barbiturates Negative (Negative); Benzodiazepines Negative (Negative); Buprenorphine Negative (Negative); Cocaine Negative (Negative); Marijuana Positive (Negative); Methadone Negative (Negative); Methamphetamines Negative (Negative); Opiates Negative (Negative); Phencyclidine Negative (Negative); Tricyclic Antidepressants Negative (Negative)
[2025-01-08 03:50] LABS: Urine Amorphous Seen; Urine Squamous Cell >30 /LPF (Few)
[2025-01-08 03:54] LABS: Urine Red Blood Cell 0-2 /HPF (0-2)
[2025-01-08 03:55] LABS: Urine Bacteria Moderate (Negative)
[2025-01-08 05:43] LABS: Hematocrit 35.1 % (39.0-52.0); Mean Corp Hgb Conc. 31.3 g/dL (33.0-37.0); Mean Corpuscular Hgb 26.5 pg (27.0-31.0); Mean Corpuscular Volume 84.6 fL (80.0-94.0); Mean Platelet Volume 10.8 fL (7.4-10.4); Platelet Count 142 10^3/uL (130-400); Red Blood Cell Count 4.15 10^6/uL (4.70-6.10); Red Cell Dist. Width 17.5 % (11.5-14.5); White Blood Cell Count 7.1 10^3/uL (4.8-10.8)
[2025-01-08 06:05] LABS: Iron 55 ug/dl (49-181)
[2025-01-08 06:06] LABS: Blood Urea Nitrogen 18 mg/dl (9-20); Calcium 9.6 mg/dl (8.4-10.2); Carbon Dioxide 26 mmol/L (22-30); Chloride 110 mmol/L (98-107); Estimated Creatinine Clearance 50 ml/min; Glucose 112 mg/dl (70-99); Potassium 3.5 mmol/L (3.5-5.1); Sodium 143 mmol/L (135-145); eGFR > 60.00
[2025-01-08 06:14] LABS: Percent Saturation 16 % (20-50); Total Iron Binding Capacity 338 ug/dl (261-462)
[2025-01-08 07:54] LABS: Glucose - Point of Care 110 mg/dl (70-99)
[2025-01-08] MEDS: LYRICA 50 MG PO ×2 (08:23→19:38)
[2025-01-08] MEDS: COREG 3.125 MG PO ×2 (08:23→19:41)
[2025-01-08] MEDS: WELLBUTRIN REGULAR RELEASE 300 MG PO (08:23)
[2025-01-08] MEDS: ELIQUIS 2.5 MG PO ×2 (08:23→19:37)
[2025-01-08] MEDS: ASPIR LOW (ENTERIC COATED) 81 MG PO (08:23)
[2025-01-08] MEDS: ARICEPT 10 MG PO (08:23)
--- NOTE | 2025-01-08 09:00 | W.PN.HOSP.TC ---
Addendum entered and electronically signed by Dominga Villar MD 01/08/25 09:12:
pt without any complaints--in fact, ate breakfast--therefore elevated lipase is of no consequence
Original Note:
Today's Communication/Plan
-
await PT/OT evals
IF does well, then D/C home
Assessment / Plan
Assessment / Plan
pt is a 79 year old male
Ambulatory Dysfunction with Frequent Falls (was here on 12/27/24 and signed out AMA)--- was observed overnight for further evaluation and treatment---await PT/OT/CM evaluations--IF does OK with therapy, can go home
ASCVD--no c/o--Significant vascular history including CAD, PAD, CVA--Continue current med regimen including ASA, statin, Eliquis, etc--Followed by Vascular s/p Fem-fem bypass and non-invasive studies have reportedly been stable.
Paroxysmal Atrial Fibrillation-- rate controlled--on Eliquis (IF pt falling more, would consider risk vs benefit of this medication)--Continue carvedilol.
Normocytic Anemia--likely of chronic disease--Hgb slightly decreased from recent baseline - though it has been similarly decreased in the past--No gross blood loss noted per patient.
DM-II with Peripheral Neuropathy--likely some contribution to his frequent falls--Stable--Continue Jardiance--Continue Lyrica for neuropathy symptoms--HGB A1C pending
CKD III--Stable--Renal function at/better than prior baseline.
Mild Hypokalemia--Oral replacement given in the ED--Mg level is adequate.
Depression/Senile Dementia--Stable--Not currently agitated/anxious--Continue current med regimen including Aricept and trazodone.
DVT Proph--On Eliquis
Code Status--Full code
Anticipated Discharge: Today
Subjective/Interval History
-
Date of Service: January 08, 2025
pt without c/o--admits he fell but did not hurt himself
Objective Data
-
Labs:
Laboratory Results
01/08/25 01/08/25
00:43 05:32
WBC 7.2 7.1
Hgb 11.5 L 11.0 L
Hct 37.0 L 35.1 L
Plt Count 141 142
Sodium 141 143
Potassium 3.1 L 3.5
Chloride 106 110 H
Carbon Dioxide 27 26
BUN 19 18
Creatinine 1.3 1.2
Glucose 134 H 112 H
Calcium 9.7 9.6
Total Bilirubin 0.7
AST 16 L
ALT 11
Alkaline Phosphatase 104
Vital Signs:
max temp for 24 hours
01/08/25
07:43
Temp 98.1 F
Vital Signs
Temp Pulse Resp BP Pulse Ox
98.1 F 57 17 162/86 98
01/08/25 07:43 01/08/25 07:43 01/08/25 07:43 01/08/25 07:43 01/08/25 07:43
I&O
01/07/25 01/08/25 01/09/25
06:59 06:59 06:59
Intake Total 600 / 600
Output Total 700 / 700 150 / 150
Balance -100 / -100 -150 / -150
Review of Systems
-
All other systems: Reviewed and negative
Physical Exam
-
General: Appears Chronically Ill
HEENT: Normocephalic and Atraumatic; Negative Oxygen
Respiratory: Clear to Auscultation; Negative Wheezes or Rhonchi
Cardiac: Irregular Rhythm; Negative Murmur, Tachycardic or Bradycardic
GI: Soft, Nontender, Nondistended and Normal Bowel Sounds
Musculoskeletal: No Clubbing, No Cyanosis and No Edema
Neuro: Awake and Alert
Psych: Calm
[2025-01-08 09:42] LABS: Glycohemoglobin (HgbA1c) 6.4 % (4.0-5.6)
[2025-01-08] MEDS: NSS IV ×2 (09:45)
[2025-01-08 11:47] LABS: Glucose - Point of Care 101 mg/dl (70-99)
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
[2025-01-08] MEDS: HALDOL 1 MG IV (15:35)
--- NOTE | 2025-01-08 16:16 | PTCARENOTE ---
Called a sky hong on this pt. Pt was moved to a private room on . His became very upset to the point that she needed to go to the ER to be seen. Took pt down with Nursing transportation department supervisor.
[2025-01-08 16:45] LABS: Glucose - Point of Care 96 mg/dl (70-99)
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
[2025-01-08] MEDS: CRESTOR 20 MG PO (17:08)
[2025-01-08] MEDS: PAXIL 40 MG PO (17:08)
[2025-01-08] MEDS: DESYREL 25 MG PO (17:08)
--- NOTE | 2025-01-08 18:04 | PTCARENOTE ---
Received pt from 4E in bed, moved to private room for disruptive behavior, previous RN gave 1mg IV Haldol, see MAR. Pt currently calm and appropriate. VSS. Ate dinner,took meds. Incontinent of urine, cooperative w/ care. Bed alarm in place. Will
continue to monitor.
[2025-01-08] MEDS: FARXIGA 10 MG PO (19:37)
[2025-01-08 20:55] LABS: Glucose - Point of Care 98 mg/dl (70-99)
[2025-01-09] MEDS: NSS IV (01:43)
[2025-01-09 06:00] VITALS: BMI 33.3
[2025-01-09 07:18] LABS: Glucose - Point of Care 97 mg/dl (70-99)
[2025-01-09 07:43] VITALS: BP 168/90
[2025-01-09 07:54] VITALS: BP 155/80; BP 168/90; PULSE 57; PULSE 73
[2025-01-09] MEDS: ASPIR LOW (ENTERIC COATED) 81 MG PO (08:14)
[2025-01-09] MEDS: ARICEPT 10 MG PO (08:14)
[2025-01-09] MEDS: WELLBUTRIN REGULAR RELEASE 300 MG PO (08:15)
[2025-01-09] MEDS: LYRICA 50 MG PO ×2 (08:15→21:03)
[2025-01-09] MEDS: COREG 3.125 MG PO ×2 (08:15→21:03)
[2025-01-09] MEDS: ELIQUIS 2.5 MG PO ×2 (08:15→21:03)
[2025-01-09 09:37] LABS: Mean Corpuscular Hgb 26.5 pg (27.0-31.0); Mean Corpuscular Volume 85.5 fL (80.0-94.0); Mean Platelet Volume 11.5 fL (7.4-10.4); Platelet Count 165 10^3/uL (130-400); Red Blood Cell Count 4.91 10^6/uL (4.70-6.10); Red Cell Dist. Width 17.8 % (11.5-14.5); White Blood Cell Count 7.1 10^3/uL (4.8-10.8)
[2025-01-09 10:12] LABS: ALT (SGPT) 11 U/L (0-50); AST (SGOT) 20 U/L (17-59); Albumin 4.7 g/dl (3.5-5.0); Alkaline Phosphatase 125 U/L (38-126); Blood Urea Nitrogen 17 mg/dl (9-20); Calcium 10.3 mg/dl (8.4-10.2); Carbon Dioxide 27 mmol/L (22-30); Chloride 107 mmol/L (98-107); Estimated Creatinine Clearance 51 ml/min; Glucose 93 mg/dl (70-99); Magnesium 2.2 mg/dl (1.6-2.3); Sodium 148 mmol/L (135-145); Total Protein 7.4 g/dl (6.3-8.2); eGFR > 60.00
[2025-01-09 11:14] LABS: Glucose - Point of Care 97 mg/dl (70-99)
--- NOTE | 2025-01-09 14:07 | CM ---
Addendum entered by Le Balderas 01/09/25 16:04:
Patient accepted by [facility] and [facility]. CM will call to patient and review options.
Original Note:
Patient seen at bedside with physicians. Patient willing to go to SNF for short term under [employer] and patient very stressed. CM sent via all scripts referrals for Waiver [employer] facilities. Await responses. Patient at home and called to
talk to physician. CM will call with responses about placement. CM will continue to follow for discharge planning needs.
Plan; SNF; referrals to [facility], [facility], [facility], [place], [facility], [facility]
[2025-01-09 15:10] VITALS: BP 151/93
[2025-01-09 15:56] LABS: Glucose - Point of Care 149 mg/dl (70-99)
[2025-01-09] MEDS: PAXIL 40 MG PO (17:24)
[2025-01-09] MEDS: DESYREL 25 MG PO (17:25)
[2025-01-09] MEDS: CRESTOR 20 MG PO (17:26)
--- NOTE | 2025-01-09 18:49 | W.PN.HOSP.TC ---
Addendum entered and electronically signed by Dominga Villar MD 01/09/25 19:13:
I saw and evaluated the patient independently. I reviewed the resident�s note and agree with findings and plan as documented by Dr. Lozada.
GENERAL: well developed, well nourished, male in no apparent distress
HEENT: NC/AT
HEART: irreg irreg-- rate controlled
LUNGS : clear to auscultation bilaterally
ABDOM: soft, nontender, nondistended, + bowel sounds
EXT: no cyanosis, clubbing, or edema
NEUROLOGIC: grossly intact
Ambulatory Dysfunction with Frequent Falls (was here on 12/27/24 and signed out AMA)--- was observed overnight for further evaluation and treatment--- PT/OT recommend SNF--agree--will likely be less than 30 days in SNF
ASCVD--no c/o--Significant vascular history including CAD, PAD, CVA--Continue current med regimen including ASA, statin, Eliquis, etc--Followed by Vascular s/p Fem-fem bypass and non-invasive studies have reportedly been stable.
Paroxysmal Atrial Fibrillation-- rate controlled--on Eliquis (IF pt falling more, would consider risk vs benefit of this medication)--Continue carvedilol.
Normocytic Anemia--likely of chronic disease--Hgb slightly decreased from recent baseline - though it has been similarly decreased in the past--No gross blood loss noted per patient.
Hypernatremia--sodium mildly increased at 148--encourage PO fluid intake
DM-II with Peripheral Neuropathy--likely some contribution to his frequent falls--Stable--Continue Jardiance--Continue Lyrica for neuropathy symptoms--HGB A1C pending
CKD III--Stable--Renal function at/better than prior baseline.
Mild Hypokalemia--Oral replacement given in the ED--Mg level is adequate.
Depression/Senile Dementia--Stable--appears to be sundowning in evenings--Continue current med regimen including Aricept and trazodone.
Elevated lipase--not significant
DVT Proph--On Eliquis
Code Status--Full code
tried to call to update--did not leave message
Original Note:
Today's Communication/Plan
-
- Speak to patients about possible SNF options
Assessment / Plan
Assessment / Plan
Ambulatory dysfunction with multiple falls:
- PT recommends SNF rehab because of decreased strength, decreased balance, endurance, impaired cognition
- Found 2 nursing homes, either in [place] or [facility]
- Will speak to about available SNF options
Significant cardiovascular history
ASCVD, CAD, PAD, CVA:
-No chest pain, angina, palpitations, syncope
- Continue aspirin, statin, Eliquis
Paroxysmal atrial fibrillation:
- Pulse is 68 and rate is well-controlled
- No palpitations, chest pain, dizziness, syncope
- Continue on Eliquis and carvedilol
Hypernatremia:
- Patient is euvolemic
- Continue to observe
Anemia of chronic disease:
- Resolved
- Hemoglobin is 13 and normal, trending up from 11.5 on admission, MCV is 85.5
Diabetes mellitus type 2:
- HbA1c 6.4
- Continue patient on Jardiance
- Continue Lyrica for neuropathy symptoms
Stable dementia:
- Continue on Aricept and trazodone
DVT prophylaxis Eliquis
CODE STATUS full code
Anticipated Discharge: 24 - 48 hours
Subjective/Interval History
-
Date of Service: January 09, 2025
Patient has no acute medical complaints.
Objective Data
-
Labs:
Laboratory Results
01/09/25
09:14
WBC 7.1
Hgb 13.0
Hct 42.0
Plt Count 165
Sodium 148 H
Potassium 4.0
Chloride 107
Carbon Dioxide 27
BUN 17
Creatinine 1.1
Glucose 93
Calcium 10.3 H
Total Bilirubin 1.0
AST 20
ALT 11
Alkaline Phosphatase 125
Vital Signs:
Vital Signs
Temp Pulse Resp BP Pulse Ox
98.1 F 68 18 151/93 98
01/09/25 15:10 01/09/25 15:10 01/09/25 15:10 01/09/25 15:10 01/09/25 15:10
I&O
01/08/25 01/09/25 01/10/25
06:59 06:59 06:59
Intake Total 600 / 600 615 / 615 1200 / 1200
Output Total 700 / 700 350 / 350
Balance -100 / -100 265 / 265 1200 / 1200
Review of Systems
-
All other systems: Reviewed and negative
Physical Exam
-
General: Appears Chronically Ill
HEENT: Normocephalic and Atraumatic
Respiratory: Clear to Auscultation
Cardiac: Irregular Rhythm
GI: Soft, Nontender, Nondistended and Normal Bowel Sounds
Musculoskeletal: No Clubbing, No Cyanosis and No Edema
Neuro: Awake and Alert
Psych: Calm
Data Reviewed
-
Labs: Labs Reviewed by me and Discussed with Physician
[2025-01-09 19:47] VITALS: BP 176/73; BP 186/77; BP 196/99; PULSE 64; PULSE 67
[2025-01-09] MEDS: FARXIGA 10 MG PO (21:04)
[2025-01-09 21:05] LABS: Glucose - Point of Care 92 mg/dl (70-99)
[2025-01-09 23:22] VITALS: BP 170/86
[2025-01-10 06:00] VITALS: BMI 32.5
[2025-01-10 07:34] VITALS: BP 169/80
[2025-01-10 07:43] LABS: Glucose - Point of Care 90 mg/dl (70-99)
[2025-01-10] MEDS: LYRICA 50 MG PO ×2 (07:58→20:28)
[2025-01-10] MEDS: ARICEPT 10 MG PO (07:58)
[2025-01-10] MEDS: ELIQUIS 2.5 MG PO ×2 (07:59→20:29)
[2025-01-10] MEDS: COREG 3.125 MG PO ×2 (08:00→20:29)
[2025-01-10] MEDS: ASPIR LOW (ENTERIC COATED) 81 MG PO (08:01)
[2025-01-10] MEDS: WELLBUTRIN REGULAR RELEASE 300 MG PO (08:01)
[2025-01-10 08:09] LABS: Hematocrit 38.1 % (39.0-52.0); Hemoglobin 11.9 g/dL (13.0-18.0); Mean Corp Hgb Conc. 31.2 g/dL (33.0-37.0); Mean Corpuscular Hgb 26.7 pg (27.0-31.0); Mean Corpuscular Volume 85.4 fL (80.0-94.0); Mean Platelet Volume 10.9 fL (7.4-10.4); Platelet Count 148 10^3/uL (130-400); Red Blood Cell Count 4.46 10^6/uL (4.70-6.10); Red Cell Dist. Width 17.9 % (11.5-14.5); White Blood Cell Count 6.5 10^3/uL (4.8-10.8)
--- NOTE | 2025-01-10 08:09 | W.PN.HOSP.TC ---
Addendum entered and electronically signed by Dominga Villar MD 01/10/25 15:46:
I saw and evaluated the patient independently. I reviewed the resident�s note and agree with findings and plan as documented by Dr. Lozada.
GENERAL: well developed, well nourished, male in no apparent distress
HEENT: NC/AT
HEART: irreg irreg-- rate controlled
LUNGS : clear to auscultation bilaterally
ABDOM: soft, nontender, nondistended, + bowel sounds
EXT: no cyanosis, clubbing, or edema
NEUROLOGIC: grossly intact
Ambulatory Dysfunction with Frequent Falls (was here on 12/27/24 and signed out AMA)-- PT/OT recommend SNF--agree--will likely be less than 30 days in SNF--OK for d/c
ASCVD--no c/o--Significant vascular history including CAD, PAD, CVA--Continue current med regimen including ASA, statin, Eliquis, etc--Followed by Vascular s/p Fem-fem bypass and non-invasive studies have reportedly been stable.
Paroxysmal Atrial Fibrillation-- rate controlled--on Eliquis (IF pt falling more, would consider risk vs benefit of this medication)--Continue carvedilol.
Normocytic Anemia--likely of chronic disease--Hgb slightly decreased from recent baseline - though it has been similarly decreased in the past--No gross blood loss noted per patient.
Hypernatremia--sodium mildly increased at 148--encourage PO fluid intake
DM-II with Peripheral Neuropathy--likely some contribution to his frequent falls--Stable--Continue Jardiance--Continue Lyrica for neuropathy symptoms--HGB A1C pending
CKD III--Stable--Renal function at/better than prior baseline.
Mild Hypokalemia--Oral replacement given in the ED--Mg level is adequate.
Depression/Senile Dementia--Stable--appears to be worse (ing) in evenings--Continue current med regimen including Aricept and trazodone--pt was agreeable to SNF BUT has no recollection of agreeing to that OR of his falls which caused him to
come in
Elevated lipase--not significant
DVT Proph--On Eliquis
Code Status--Full code
Original Note:
Today's Communication/Plan
-
- Find correct facility for patient to be discharged too
Assessment / Plan
Assessment / Plan
Ambulatory dysfunction with multiple falls:
- Spoke to about the rehab facilities available, and she is now doing her research.
- PT recommends SNF rehab because of decreased strength, decreased balance, endurance, impaired cognition
- Found 2 nursing homes, either in [place] or [facility]
Significant cardiovascular history
ASCVD, CAD, PAD, CVA:
-No chest pain, angina, palpitations, syncope
- Continue aspirin, statin, Eliquis
Paroxysmal atrial fibrillation:
- Pulse is 68 and rate is well-controlled
- No palpitations, chest pain, dizziness, syncope
- Continue on Eliquis and carvedilol
Hypernatremia:
- Patient is euvolemic
- Continue to observe
Anemia of chronic disease:
- Resolved
- Hemoglobin is 13 and normal, trending up from 11.5 on admission, MCV is 85.5
Diabetes mellitus type 2:
- HbA1c 6.4
- Continue patient on Jardiance
- Continue Lyrica for neuropathy symptoms
Stable dementia:
- Continue on Aricept and trazodone
DVT prophylaxis Eliquis
CODE STATUS full code
Anticipated Discharge: 24 - 48 hours
Subjective/Interval History
-
Date of Service: January 10, 2025
Patient has no acute medical complaints. Has been having intermittent episodes of agitation overnight.
Objective Data
-
Labs:
Laboratory Results
01/10/25
07:09
WBC 6.5
Hgb 11.9 L
Hct 38.1 L
Plt Count 148
Sodium Pending
Potassium Pending
Chloride Pending
Carbon Dioxide Pending
BUN Pending
Creatinine Pending
Glucose Pending
Calcium Pending
Vital Signs:
Vital Signs
Temp Pulse Resp BP Pulse Ox
98.3 F 68 20 169/80 98
01/10/25 07:34 01/10/25 07:34 01/10/25 07:34 01/10/25 07:34 01/10/25 07:34
I&O
01/09/25 01/10/25 01/11/25
06:59 06:59 06:59
Intake Total 615 / 615 1200 / 1200
Output Total 350 / 350
Balance 265 / 265 1200 / 1200
Review of Systems
-
All other systems: Reviewed and negative
Physical Exam
-
General: Appears Chronically Ill
HEENT: Normocephalic and Atraumatic
Respiratory: Clear to Auscultation
Cardiac: Irregular Rhythm
GI: Soft, Nontender, Nondistended and Normal Bowel Sounds
Musculoskeletal: No Clubbing, No Cyanosis and No Edema
Neuro: Awake and Alert
Psych: Calm
Data Reviewed
-
Labs: Labs Reviewed by me and Discussed with Physician
[2025-01-10 08:53] LABS: Blood Urea Nitrogen 22 mg/dl (9-20); Calcium 10.1 mg/dl (8.4-10.2); Carbon Dioxide 27 mmol/L (22-30); Chloride 109 mmol/L (98-107); Estimated Creatinine Clearance 50 ml/min; Glucose 88 mg/dl (70-99); Potassium 3.7 mmol/L (3.5-5.1); Sodium 146 mmol/L (135-145); eGFR > 60.00
[2025-01-10 09:30] VITALS: BP 181/71; PULSE 56; O2SAT 98
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
--- NOTE | 2025-01-10 11:48 | CM ---
Addendum entered by Le Balderas 01/10/25 15:24:
Ambulance EMT called to take patient to SNF, refused to do so due to patient stating he did not want to go. Patient with diagnosis of Dementia. Patient continues to refuse transfer despite physician speaking with him, his talking to him and CM.
Patient does not remember discussions with physicians/CM about agreeing to go to SNF. Patient called CM and stated that patient physician from [place] calling to try to convince patient to go. Physician has requested consult from Psychiatrist to
determine patient capacity to make decisions about care. CM updated [facility], [place] and will continue to follow for discharge planning needs.
Original Note:
Patient accepted at [facility] and per Mi please [phone]/fax [phone]. CM updated patient who is in agreement with plan. [employer] auth transmitted to [facility] and patient for ambulance transport momentarily. CM will continue to
follow for discharge planning needs.
Plan; transport to SNF. Ambulance forms completed and given to nurse.
[2025-01-10] MEDS: ATIVAN 0.25 MG IV (11:57)
[2025-01-10] MEDS: NSS (PRESERVATIVE FREE) 0.125 ML IV (11:58)
--- NOTE | 2025-01-10 14:13 | W.PN.UPDATE ---
Addendum entered and electronically signed by Dominga Villar MD 01/10/25 15:57:
Patient has a history of senile dementia and does not recall speaking to us or agreeing to go to rehab, despite him being agreeable yesterday 01/09/2025. Case management, myself, and resident team was present for this discussion when he agreed to go
to rehab. Ambulance crew came to pick patient up today and the patient refused to go with them; ambulance team refused to take him because they feel that he is oriented and would be taking him 'against his will' as he indicated to them.
Case management, myself, Dr. Saroj Lozada, and patient discussed with the patient his need to go to rehab and reminded him that he agreed to do so. He states that he agreed to no such thing; he also does not admit to falling at home which is
what prompted him to come here. He is clearly worse in the evenings.
I spoke to the ambulance drivers myself and indicated that I do not believe the patient is competent to make his own decisions. They are concerned that [facility] would not accept him and they would have to bring him back here if he starts
telling them that he is being held against his will.
Therefore, ambulance drivers were excused, patient has been returned to his bed. Psychiatry has been consulted to evaluate the patient's capacity to make medical decisions.
Original Note:
Update Note
Progress Note Update
Agitation due to underlying dementia:
- Patient is trying to move out of bed, cursing at staff, threatening to call police for 'being held against his will' even though patient is being treated for ambulatory dysfunction
- Ambulance was called, however patient refused to leave and wanted to stay
- Ordered 0.25 ativan
- Informed nursing staff to call security if patient becomes agitated and threatening again
- [facility] was consulted
--- NOTE | 2025-01-10 16:38 | PTCARENOTE ---
Pt ambulated to the bathroom with assistance from this RN. Pt went to sit on the toilet and missed it but started to fall forward. This RN caught pt and yelled for help. Pt put back on toilet, pt did not fall to the ground or hit head. Pt stating
that I made him fall and he hates it here. Pt back into bed, pt still refusing care stating he is on hunger strike, made aware.
--- NOTE | 2025-01-10 16:57 | CS.PSYCHR ---
Consult Summary - Psychiatry
-
Pt is a 79 yo male with hx of A-Fib, ASCVD and dementia who presented to ED 01/08/25 complaining of frequent falls, legs giving out. Pt is on Donepezil, Paroxetine, Bupropion, Trazodone. Psychiatry asked to evaluate capacity. Pt noted to be
agitated and threatening on 01/08, trying to kick and punch staff, not able to recall why he is here. Earlier today noted trying to call 911, yelling that he is being held hostage, uncooperative, urinating on the floor. At midday, pt refused to go
to rehab, unable to recall his reason for admission, was given Ativan for agitation.
On interview later this afternoon, pt seen lying in bed, making eye contact, affect irritable. Pt not able to answer/avoids orientation questions, only able to state he has been here before. Pt not able to recall the reason he came to the
hospital, c/o being here is not helping him. He continues to refuse to go to rehab without any rational explanation. Pt states we can help him by sending him home.
Psych Hx: Per Dr Berman's eval 09/24/2022- hx of PTSD related to service in [place], prescribed Paxil and Trazodone by [facility] psychiatrist. Onset of dementia noted in 2021
SH: Per previous note, lives with of 52 yrs, no kids. 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 Retired since age 60
MSE: alert, sensorium intact, making eye contact. No oriented to specific place, time, or situation. Speech coherent, thought goal-directed; able to state his wish to go home, but not able to show understanding of his medical needs, not able to
give any rationale or manipulate the relevant information; not able to recall why he is in the hospital. Insight poor.
Imp: Pt currently lacks capacity for disposition or medical decisions, primarily due to dementia; will need to enlist spouse/family for decision-making
Rec: would change Bupropion to XL form (IR should be given in divided doses) and taper down, since this could be contributing to irritability/agitation
Will follow
[2025-01-10] MEDS: PAXIL PO (17:32)
[2025-01-10] MEDS: DESYREL PO (17:32)
[2025-01-10] MEDS: CRESTOR PO (17:32)
[2025-01-10] MEDS: STERILE WATER FOR INJECTION 2.1 ML IM (18:05)
[2025-01-10] MEDS: ZYPREXA 5 MG IM (18:05)
[2025-01-10] MEDS: FARXIGA 10 MG PO (20:29)
--- NOTE | 2025-01-10 22:35 | PTCARENOTE ---
Pt refused accu check for bedtime 01/10/25. No s/s of hypo/hyperglycmia noted
--- NOTE | 2025-01-10 23:19 | PTCARENOTE ---
pt refused 2300 VS. pt currently resting in bed and sleeping.
[2025-01-11 06:00] VITALS: BMI 25.6
[2025-01-11] MEDS: ARICEPT PO (08:20)
[2025-01-11] MEDS: ELIQUIS PO (08:23)
[2025-01-11] MEDS: LYRICA PO (08:23)
[2025-01-11] MEDS: COREG PO (08:23)
[2025-01-11] MEDS: ASPIR LOW (ENTERIC COATED) PO (08:23)
--- NOTE | 2025-01-11 09:34 | CM ---
Patient seen at bedside, Patient continues to decline to go to SNF. Patient seen by Psychiatrist and deemed to lack capacity to make decisions. Patient updated by physician, Dr. Lozada and CM called to SNF and reviewed with germán [facility]. CM
updated ambulance transport now scheduled for 10am. CM updated nursing and plan is for transfer today. Please call report to [phone]/fax [phone]. [facility] auth transmitted to center yesterday. CM will continue to follow for discharge
planning needs.
Plan; transport to SNF. Ambulance forms completed and given to nurse.CM will continue to follow for discharge planning needs.
[2025-01-11] MEDS: ATIVAN 0.25 MG IV (09:36)
[2025-01-11] MEDS: NSS (PRESERVATIVE FREE) 0.125 ML IV (09:38)
--- NOTE | 2025-01-11 10:18 | PTCARENOTE ---
report given to nurse Mench[place]
--- NOTE | 2025-01-11 14:35 | W.PN.HOSP.TC ---
Addendum entered and electronically signed by Dominga Villar MD 01/11/25 17:07:
I saw and evaluated the patient independently. I reviewed the resident�s note and agree with findings and plan as documented by Dr. Lozada.
GENERAL: well developed, well nourished, male in no apparent distress
HEENT: NC/AT
HEART: irreg irreg-- rate controlled
LUNGS : clear to auscultation bilaterally
ABDOM: soft, nontender, nondistended, + bowel sounds
EXT: no cyanosis, clubbing, or edema
NEUROLOGIC: grossly intact
Ambulatory Dysfunction with Frequent Falls (was here on 12/27/24 and signed out AMA)-- PT/OT recommend SNF--agree--will likely be less than 30 days in SNF--OK for d/c
ASCVD--no c/o--Significant vascular history including CAD, PAD, CVA--Continue current med regimen including ASA, statin, Eliquis, etc--Followed by Vascular s/p Fem-fem bypass and non-invasive studies have reportedly been stable.
Paroxysmal Atrial Fibrillation-- rate controlled--on Eliquis (IF pt falling more, would consider risk vs benefit of this medication)--Continue carvedilol.
Normocytic Anemia--likely of chronic disease--Hgb slightly decreased from recent baseline - though it has been similarly decreased in the past--No gross blood loss noted per patient.
Hypernatremia--sodium mildly increased at 148--encourage PO fluid intake
DM-II with Peripheral Neuropathy--likely some contribution to his frequent falls--Stable--Continue Jardiance--Continue Lyrica for neuropathy symptoms--HGB A1C pending
CKD III--Stable--Renal function at/better than prior baseline.
Mild Hypokalemia--Oral replacement given in the ED--Mg level is adequate.
Depression/Senile Dementia--Stable--appears to be worse (ing) in evenings--Continue current med regimen including Aricept and trazodone--pt was agreeable to SNF BUT has no recollection of agreeing to that OR of his falls which caused him to
come in--apprec psych--pt lacks capacity to make medical decisions--cleared for d/c to SNF as planned for previous day
Elevated lipase--not significant
DVT Proph--On Eliquis
Code Status--Full code
Original Note:
Today's Communication/Plan
-
- patient is being disharged today
Assessment / Plan
Assessment / Plan
Ambulatory dysfunction with multiple falls:
- PT recommends SNF rehab because of decreased strength, decreased balance, endurance, impaired cognition
- patient is being discharged to [facility]
Significant cardiovascular history
ASCVD, CAD, PAD, CVA:
-No chest pain, angina, palpitations, syncope
- Continue aspirin, statin, Eliquis
Paroxysmal atrial fibrillation:
- Pulse is 68 and rate is well-controlled
- No palpitations, chest pain, dizziness, syncope
- Continue on Eliquis and carvedilol
Hypernatremia:
- Patient is euvolemic
- Continue to observe
Anemia of chronic disease:
- Hemoglobin is 13 and normal, trending up from 11.5 on admission, MCV is 85.5
Diabetes mellitus type 2:
- HbA1c 6.4
- Continue patient on Jardiance
- Continue Lyrica for neuropathy symptoms
Dementia with multiple episodes of agitation:
- Continue on Aricept and trazodone
- Psychiatry was consulted and Patient was deemed incompetent to have medical decision making capacity ( no insight or orientation to place time self) , and was made the power of timber treating tank operator, she wants patient to be discharged to [facility]
for rehab
- Ordered ativan .25 mg to help calm agitation before transfer to SNF
DVT prophylaxis Eliquis
CODE STATUS full code
Anticipated Discharge: Today
Subjective/Interval History
-
Date of Service: January 11, 2025
Patient refused to give me a history today.. Has been having intermittent episodes of agitation overnight.
Objective Data
-
Labs:
Laboratory Results
01/11/25
06:00
WBC Cancelled
Hgb Cancelled
Hct Cancelled
Plt Count Cancelled
Vital Signs:
Vital Signs
Temp Pulse Resp BP Pulse Ox
98.3 F 68 20 169/80 98
01/10/25 07:34 01/10/25 08:00 01/10/25 07:34 01/10/25 08:00 01/10/25 07:34
I&O
01/10/25 01/11/25 01/12/25
06:59 06:59 06:59
Intake Total 1200 / 1200 1200 / 1200
Balance 1200 / 1200 1200 / 1200
Review of Systems
-
Unable to obtain full review of systems at this time due to: Other (did not want to give me a history)
Physical Exam
-
General: Other (Patient refused to let me do a physical exam on him)
Data Reviewed
-
Labs: Labs Reviewed by me and Discussed with Physician
--- NOTE | 2025-01-11 15:39 | W.DCSUMMARY ---
Addendum entered and electronically signed by Dominga Villar MD 01/12/25 07:13:
Read, reviewed, and agree. See same day progress note for additional details. Time spent coordinating care, DC planning, review of DC plan of care with resident, transition of care, review of records in EMR, med rec, consults, notes, d/w
consultants, nursing, family, and CM =33 minutes
Clarification: Patient was in the emergency department on December 27, 2024 and did leave AGAINST MEDICAL ADVICE at that time.
When patient refused to leave with the ambulance/EMS transfer team, patient discharge was canceled and patient was seen in consultation by psychiatry.
Psychiatry deemed that the patient lacks capacity to make medical decisions. Therefore, (who is patient's power of workers compensation attorney) made medical decisions. did not 'become power of workers compensation attorney' at that time; rather, her responsibilities of power
of workers compensation attorney were invoked.
Original Note:
Discharge Summary
Discharge Data
Date of Admission: 01/08/25
Date of Discharge: 01/11/25
-
Pending Results: No
Hospital Course
Discharging Physician : Dr. Dominga Villar and Dr. Saroj Lozada
Disposition : [facility] facility
Primary care physician : Dr. Elvis Baker
Principal Discharge diagnosis : Ambulatory dysfunction with multiple falls, dementia with agitation, hypernatremia
Chronic Discharge diagnosis : ASCVD, coronary artery disease, peripheral artery disease, CVA, paroxysmal atrial fibrillation, normocytic anemia, diabetes mellitus type 2
Hospital Course : Patient is a 79-year-old male with a past medical history significant for A-fib, ASCVD, coronary disease, peripheral artery disease, CVA, paroxysmal atrial fibrillation, anemia chronic disease, diabetes mellitus type 2, dementia
who presents with complaint of frequent falls. He has been falling 3-4 falls per week for the past several months. No prodrome of dizziness lightheadedness chest pain or syncope. He uses a walker at baseline. He denies any significant injuries
related to fall. Previously evaluated in the ED and left AGAINST MEDICAL ADVICE on.
Problem #1: Ambulatory dysfunction with multiple falls---On admission Head CT and Chest X-ray was unremarkable. Extremity arterial study unremarkable. Physical therapy saw patient and recommended SNF rehab because of decreased strength, balance,
endurance and impaired cognition. On physical examination, patient appears deconditioned. Patient was discharged to [facility] rehab for continued rehabilitation therapy. He also had a previous admission for a fall related incident on 12/27/24 to
[place] ED and left against medical advice.
Problem #2: Senile dementia with agitation--- Patient is continued on his at home regime of Aricept and Trazodone during hospital stay. During stay, he had multiple episodes of agitation including verbally abusing nursing staff, swinging at staff,
and restlessness. Urine cultures were negative. He is experiencing sundowning, in which symptoms of agitation and confusion start in afternoon/ evenings and in the morning patient is calm. Had to administer Ativan 0.25 on two separate occasions to
ease his agitation as well as Zyprexa IM. On 01/10/25, he was to be discharged, however he refused to leave, started becoming agitated again, and then refused to leave with the EMS team. Psychiatry was consulted and deemed patient to lack medical
decision making capacity, so his became power of workers compensation attorney. He was then discharged to [facility] rehab facility.
Problem #3: ASCVD/ CAD/PAD/CVA---No chest pain, palpitations, dyspnea, fatigue, edema seen during course of stay. Patient was continued on home dose aspirin, statin, Eliquis and these are to be continued on discharge.
Problem #4: Paroxysmal atrial fibrillation---No complaints of palpitations, chest pain, dyspnea, syncope seen during hospital stay. Rate is well controlled. Discharged on at home Eliquis and Carvedilol.
Problem #5: Mild Hypernatremia--- No thirst, lethargy, dry mucous membranes. Sodium level on discharge is 146. Continue to observe and repeat CMP in 1 week with PCP.
Problem #6: Diabetes Mellitus type 2---Glucose levels on discharge are 88 and well controlled. Hba1c is 6.4. Continue patient on at home Jardiance and Lyrica.
Problem #7: Normocytic anemia--- Patients hgb is 11.9 and MCV 85.4 on discharge. cause is unknown. Repeat CBC in 1 week with PCP.
Important imaging findings :
1. Head CT on 01/08/2025:
IMPRESSION:
Slightly increased hypoattenuation in the right internal capsule compared to the head CT from 12/27/2024. This could represent age-indeterminate ischemia, and an MRI would be more sensitive if there is clinical concern for an acute or subacute infarct.
2. Chest X-ray on 01/08/2025:
IMPRESSION:
No acute cardiopulmonary process.
3. Extremity arterial study on 01/09/2025:
IMPRESSION:
1. Noncompressible arteries bilaterally, suggestive of medial calcinosis and/or arterial noncompliance, which makes measured ankle-brachial indices unreliable. Toe brachial indices are considered more reliable in this situation.
2. Right toe brachial index measures 0.72, compared to 0.41 on prior study. Femoral to femoral bypass graft is patent. Focal occlusion of the right mid SFA, with reconstitution of the distal SFA. Infrapopliteal disease may also be present.
3. Left toe brachial index 0.68, compared to 0.25 on prior. Occlusion of the length of the left SFA. Infrapopliteal disease may be present.
Procedure findings :
Discharge Plan
-
Patient Disposition: [facility]/SNF
Discharge Diagnosis/Procedures: Ambulatory dysfunction with multiple falls, ASCVD, Paroxysmal Atrial Fibrillation, Normocytic anemia, Hypernatremia, Diabetes mellitus with peripheral neuropathy, chronic kidney disease stage 3, Mild hypokalemia,
Depression, Senile dementia, Elevated lipase
Condition: Fair
Diet: Other diet
Additional Diets: 1800 calorie Diabetic
Activity: As tolerated
Driving Restrictions: Not until seen by your Dr
Bathing Restrictions: None
Blood Work: CBC in 1 week with PCP
CMP in 1 week with PCP
Referrals:
Shaggy Dewitt MD [Family Provider] - in less than 1 week
Prescriptions:
New
donepezil 10 mg Tablet
10 mg PO DAILY Qty: 30 0RF
Continued
trazodone 50 mg Tablet
25 mg PO HSPRN PRN (Reason: sleep)
rosuvastatin [Crestor] 20 mg Tablet
20 mg PO QPM
pregabalin [Lyrica] 50 mg Capsule
50 mg PO BID
empagliflozin 25 mg Tablet
12.5 mg PO HS
paroxetine HCl 40 mg Tablet
40 mg PO QPM
aspirin 81 mg Tablet
81 mg PO DAILY
donepezil 10 mg Tablet
10 mg PO HS
cyanocobalamin (vitamin B-12) 1,000 mcg Tablet
2,000 mcg PO DAILY
carvedilol 3.125 mg Tablet
3.125 mg PO BID
bupropion HCl 300 mg Tablet Extended Release 24 Hr
300 mg PO DAILY
Eliquis 2.5 mg Tablet
2.5 mg PO BID
Discharge Date and Time
Discharge Date/Time: 01/11/25 11:00
Print Language: JAPANESE
== END 2025-01-11 11:00 ==
LOC: 4 WEST ACU 03:05
PROVIDERS: ADMITTING PHYSICIAN Hospitalist; ATTENDING PHYSICIAN Internal Medicine; CONSULT PHYSICIAN Psychiatry & Neurology Psychiatry; EMERGENCY PHYSICIAN Emergency Medicine; FAMILY PHYSICIAN Family Medicine
DX: R26.2 Difficulty in walking, not elsewhere classified (principal); R53.1 Weakness; Z87.891 Personal history of nicotine dependence; Z11.52 Encounter for screening for COVID-19; Z79.01 Long term (current) use of anticoagulants; I25.10 Atherosclerotic heart disease of native coronary artery without angina pectoris; Z86.73 Personal history of transient ischemic attack (TIA), and cerebral infarction without residual deficits; I48.0 Paroxysmal atrial fibrillation; Z79.899 Other long term (current) drug therapy; E11.22 Type 2 diabetes mellitus with diabetic chronic kidney disease; E11.42 Type 2 diabetes mellitus with diabetic polyneuropathy; E87.6 Hypokalemia; F32.A Depression, unspecified; F03.A3 Unspecified dementia, mild, with mood disturbance; F03.A11 Unspecified dementia, mild, with agitation; E87.0 Hyperosmolality and hypernatremia; Z79.82 Long term (current) use of aspirin; D63.1 Anemia in chronic kidney disease; R29.6 Repeated falls
CPT/HCPCS: 70450; 71045; 80048; 80053; 80306; 81003; 81015; 82077; 82962; 83036; 83540; 83550; 83690; 83735; 83880; 84443; 84484; 85025; 85027; 87086; 87502; 87811; 93005; 93922; 93925; 97163; 97530; 99285; J2358

== ENCOUNTER → 2025-02-01 10:26 | Outpatient (REF) | payer MEDICARE, OTHER, SELFPAY | LOC: RAD 10:26 | PROVIDERS: ATTENDING PHYSICIAN Registered Nurse; FAMILY PHYSICIAN Family Medicine | DX: I73.9 Peripheral vascular disease, unspecified (principal) | CPT/HCPCS: 93922; 93925; 93978 ==

== ENCOUNTER → 2025-02-23 10:53 | Outpatient (REF) | payer MEDICARE, OTHER, SELFPAY ==
[2025-02-23 12:09] LABS: Albumin 4.2 g/dl (3.5-5.0); Blood Urea Nitrogen 20 mg/dl (9-20); Calcium 9.7 mg/dl (8.4-10.2); Carbon Dioxide 30 mmol/L (22-30); Chloride 108 mmol/L (98-107); Glucose 138 mg/dl (70-99); Phosphorus 2.6 mg/dl (2.5-4.5); Potassium 3.2 mmol/L (3.5-5.1); Sodium 144 mmol/L (135-145); eGFR 47.06
== END ==
LOC: REG 10:53
PROVIDERS: ATTENDING PHYSICIAN Internal Medicine Cardiovascular Disease; FAMILY PHYSICIAN Family Medicine
DX: I25.5 Ischemic cardiomyopathy (principal); I25.10 Atherosclerotic heart disease of native coronary artery without angina pectoris
CPT/HCPCS: 36415; 80069

== ENCOUNTER → 2025-08-05 10:33 | Outpatient (REF) | payer MEDICARE, OTHER, SELFPAY ==
[2025-08-05 11:20] LABS: Albumin 4.5 g/dl (3.5-5.0); Blood Urea Nitrogen 19 mg/dl (9-20); Calcium 9.5 mg/dl (8.4-10.2); Carbon Dioxide 30 mmol/L (22-30); Chloride 107 mmol/L (98-107); Glucose 129 mg/dl (70-99); Potassium 3.6 mmol/L (3.5-5.1); Sodium 144 mmol/L (135-145); eGFR 50.81
== END ==
LOC: REG 10:33
PROVIDERS: ATTENDING PHYSICIAN Internal Medicine Cardiovascular Disease; FAMILY PHYSICIAN Family Medicine
DX: R60.0 Localized edema (principal)
CPT/HCPCS: 36415; 80069

== ENCOUNTER → 2025-09-01 13:59 | Outpatient (REF) | payer MEDICARE, OTHER, SELFPAY | LOC: DHVS 13:59 | PROVIDERS: ATTENDING PHYSICIAN Surgery Vascular Surgery; FAMILY PHYSICIAN Family Medicine | DX: I73.9 Peripheral vascular disease, unspecified (principal) | CPT/HCPCS: 93922; 93925 ==